=== PATIENT | female | born 2000 | race Caucasian/White ===

== ENCOUNTER 2025-04-03 13:10 | Emergency (ER) | payer OTHER, SELFPAY ==
[2025-04-03 13:10] VITALS: BMI 19.3
[2025-04-03 13:13] VITALS: BP 131/90
--- NOTE | 2025-04-03 13:41 | ED.GENMED ---
History of Present Illness
General
Chief Complaint: Female [employer]/Gu symptoms
Source: patient and spouse
Time Seen by Provider: 04/03/25 13:28
History of Present Illness
History of Present Illness:
This patient is a 25-year-old female presents emergency department with complaints of pain in her lower abdomen/pelvic area that was severe for about 2 hours before resolving almost completely. She states that she also noted vaginal bleeding with
this. She states that she is a few days late for her period and this all could be related to her normal menstruation. She did take a test yesterday which was negative. She called her [employer] today and was referred to the emergency
department given her symptoms. Patient is sexually active and not currently on contraception. She denies associated anorexia and in fact ate today. She denies fever, chills, back pain, urinary symptoms, chest pain, shortness of breath, vomiting,
or other complaints. Patient states that her dog jumped on her lower abdomen/pelvic area this morning as well and wonders if that contributed to her symptoms.
Past History
Past History
ED Past Medical History: None
ED Past Surgical History: None
Social History
Tobacco: Non-smoker
Alcohol: None
Drug: None
Personal:
Living: with family
Phy Exam
Physical Exam
Physical Exam:
GENERAL: Alert , in no apparent distress
EYE: pupils equal and reactive
NECK: Supple, no significant adenopathy.
ENT: o/p clr, mmm.
CARDIAC: Regular rate and rhythm .
LUNGS: Clear breath sounds bilaterally, no acute respiratory distress, no wheezes/rales/rhonchi
ABDOMEN: Soft, without focal tenderness, no r/g, no cvat
NEUROLOGICAL: Alert and oriented, no focal neuro deficits
SKIN: Warm and dry, skin intact.
MUSCULOSKELETAL: No edema, well perfused.
PSYCH: Normal and appropriate interaction.
Course
Orders/Labs/Results
Orders:
Orders
04/03/25 13:51
Test Result ONCE
04/03/25 15:05
Urinalysis Reflex To Culture Urgent
Date Specimen was Collected: 04/03/25
Time Specimen was Collected: 15:02
Urine Microscopic Reflex Cult Urgent
Urine,Hcg qualitative screen [HCG, Urine Qualitative Screen] Urgent
Date Specimen was Collected: 04/03/25
Time Specimen was Collected: 15:02
Urine Culture Urgent
OZIEL Source: U
Specimen Description:
Date Specimen was Collected: 04/03/25
Time Specimen was Collected: 15:02
Abnormal Lab Results
04/03/25
15:05
Ur Occult Blood Reflex 4+ A
(Negative)
Leukocyte Esterase Rfl 1+ A
(Negative)
Urine RBC 7-10 A /HPF
(0-2)
Urine Bacteria (Reflex) Few A
(Negative)
Vital Signs
Initial and Last Documented VS:
Initial Vital Signs
Temp Pulse Resp BP Pulse Ox
98.2 F 110 16 131/90 98
04/03/25 13:13 04/03/25 13:13 04/03/25 13:13 04/03/25 13:13 04/03/25 13:13
Last Documented Vital Signs
Temp Pulse Resp BP Pulse Ox
98.2 F 92 16 118/74 98
04/03/25 13:13 04/03/25 15:09 04/03/25 15:09 04/03/25 15:09 04/03/25 15:09
*Pulse Oximetry
SaO2: 98
Oxygen Mode of Delivery: Room air
Patient hypoxic: no
*Critical Care Note
Total Time (30-74mins, 75-104mins- exclusive of procedures): Not Applicable
Update Note
Update Note:
Patient presents to the Emergency Department with ___pelvic/lower abdominal pain with vaginal bleeding
Number and Complexity of Problems Addressed at the Encounter
� Chronic conditions affecting care:
� Acute Exacerbation and/or Progression of Chronic Illness:
� Differential Diagnosis includes: But not limited to threatened AB, ectopic, menstrual related symptoms, appendicitis, etc. etc.
Amount and/or Complexity of Data to be Reviewed and Analyzed
� I performed an independent evaluation of and my interpretation is:
EKG:
CT:
Xrays:
Laboratory Studies: hCG negative
Other:
� Review of other/old records reveals:
� Clinical information was obtained by an independent historian:
� Prescriptions/Medications Considered but not given:
� Further testing considered but not performed:
Risk of Complications and/or Morbidity or Mortality of Patient Management
� Social determinants of health affecting care:
� Discussion with other providers (PCP, Hospitalists, Consultants, etc):
� Escalation of care including admission/observation vs risk of discharge considered: hCG negative UA inconclusive regarding UTI because of so many squamous cells. Patient declines to offer another urine as clinical suspicion
for UTI extremely low, no dysuria, urgency, frequency, flank pain, fever, etc. Discussed with patient importance of follow-up and reasons to return to the ER. Pain is now fully resolved. Suspect symptoms related to menstrual cycle.
ED Attending Note
-
Portions of this chart may have been created with voice recognition software.� Occasional wrong word or��sound alike� substitutions may have occurred due to the inherent limitations of voice recognition software.
Discharge Plan
Departure
Patient Disposition: Home (Routine Discharge)
Date of Disposition: 04/03/25
Time of Disposition: 15:58
Patient with high blood pressure during this ER visit?: Yes
Condition: Good
Discharge Problem:
Abdominal pain, Vaginal bleeding
Instructions: Heavy Periods (DC), BLOOD PRESSURE
Prescriptions:
No Action
Unobtainable
0
Referrals:
Cyndie Hernandez CRNP [Family Provider, Family Practice] - Follow up in 2-3 days
Activity Restrictions/Additional Instructions:
IF YOU DEVELOP RECURRENT PAIN, FEVER, DIZZINESS, CHEST PAIN, SHORTNESS OF BREATH, INCREASING BLEEDING, OR OTHER WORRISOME SIGNS, PLEASE RETURN TO THE ER IMMEDIATELY!
Interventions
Interventions:
*Risk Screen - Suicide Last Done: 04/03/25 13:13
*General Assessment Last Done: 04/03/25 13:26
*Neglect/Abuse Screening Last Done: 04/03/25 13:13
*ED- Fall Risk Assessment Last Done: 04/03/25 13:26
ED-Female Genitourinary Assessment Last Done: 04/03/25 13:26
Discharge Date and Time
Print Language: FRISIAN
[2025-04-03 13:46] VITALS: BP 122/74
[2025-04-03 15:09] VITALS: BP 118/74
[2025-04-03 15:13] LABS: Urine Character Clear (Clear)
[2025-04-03 15:23] LABS: Urine Squamous Cell 21-25 /LPF (Few)
[2025-04-03 15:49] LABS: HCG, Urine Qualitative Screen Negative
== END 2025-04-03 16:06 | disposition home or self-care (01) ==
LOC: EMR 13:10
PROVIDERS: EMERGENCY PHYSICIAN Emergency Medicine; FAMILY PHYSICIAN Nurse Practitioner
DX: R10.9 Unspecified abdominal pain (principal); N93.9 Abnormal uterine and vaginal bleeding, unspecified; R03.0 Elevated blood-pressure reading, without diagnosis of hypertension
CPT/HCPCS: 99283; 81003; 81015; 81025; 87086

== ENCOUNTER → 2025-04-24 08:24 | Outpatient (REF) | payer OTHER, SELFPAY | LOC: HWRAD 08:24 | PROVIDERS: ATTENDING PHYSICIAN Advanced Practice Midwife; FAMILY PHYSICIAN Nurse Practitioner | DX: R10.2 Pelvic and perineal pain (principal) | CPT/HCPCS: 76830; 76856 ==